=== PATIENT | female | born 1995 | race Caucasian/White ===

== ENCOUNTER 2016-09-05 22:42 | Emergency (ER) | payer BC ==
[~2016-09-05] VITALS: Ht 43.2 cm; Wt 104.5 kg
[~2016-09-05 22:42] MED LIST: COLACE 100100 MG/CAP PO; FERROUS SU325 MG/TAB PO; IRON325 MG; MOTRIN 800800 MG/TAB PO; NATURAL POTASS595 MG; PERCOCET 325 MG1 TA2; PRENATAL MVI PO; TYLENOL 500MG500 MG PO; XARELTO STARTER20 MG PO; XARELTO20 MG PO
[2016-09-05] MEDS ORDERED: BIRTH CONTROL PILL (22:51)
[2016-09-05 23:38] LABS: BASO % 0.3 % (0.0-2.0); EOS # 0.3 (0.0-0.7); EOS % 3.5 % (0-4.0); GRAN # 4.8 (1.4-6.5); GRAN % 52.2 % (42.2-75.2); HEMATOCRIT 37.6 % (37.0-47.0); HEMOGLOBIN 12.6 g/dl (12.5-16.0); LYMPH # 3.3 (1.2-3.4); LYMPH % 35.8 % (20.0-51.0); MEAN CELL VOLUME 89 fl (80.0-100.0); MEAN CORPUSCULAR HEMOGLOBIN 30 pg (27.0-31.0); MEAN CORPUSCULAR HGB CONC 34 g/dl (33.0-37.0); MEAN PLATELET VOLUME 10.1 fl (7.4-10.4); MONO # 0.7 (0.1-0.6); PLATELET COUNT 236 K/mm3 (130-400); RED BLOOD COUNT 4.23 M/mm3 (4.10-5.30); REDCELL DISTRIBUTION WIDTH-CV 12.6 % (11.5-14.5); WHITE BLOOD COUNT 9.2 K/mm3 (4.8-10.8)
[2016-09-05 23:43] LABS: PROTHROMBIN TIME 11.6 SECONDS (9.7-12.8)
[2016-09-05 23:46] LABS: PARTIAL THROMBOPLASTIN TIME 29.5 SECONDS (26.0-37.0)
[2016-09-05 23:47] LABS: ADJUSTED CALCIUM 9.3 mg/dL (8.4-10.2); ALANINE AMINOTRANSFERASE 33 U/L (9-52); ALBUMIN 4.1 gm/dL (3.5-5.0); ALKALINE PHOSPHATASE 80 U/L (50-136); ANION GAP 11 mmol/L (7-16); BILIRUBIN,TOTAL 0.6 mg/dL (0.0-1.0); BLOOD UREA NITROGEN 13 mg/dL (7-17); CALCIUM 9.4 mg/dL (8.4-10.2); CARBON DIOXIDE 23 mmol/L (22-30); CHLORIDE 107 mmol/L (98-107); CREATININE, serum 0.79 mg/dL (0.52-1.25); GLUCOSE 108 mg/dL (74-106); LIPASE 103 U/L (23-300); POTASSIUM 3.4 mmol/L (3.4-5.0); SODIUM 141 mmol/L (137-145); TOTAL PROTEIN 7.6 gm/dL (6.4-8.2)
[2016-09-05 23:59] LABS: B-TYPE NATRIURETIC PEPTIDE 28 pg/mL (0-125); TROPONIN-I < 0.012 ng/mL (0.000-0.034)
[2016-09-06 01:47] VITALS: BP 94/64; PULSE 75; TEMP 98.2
== END 2016-09-06 01:50 | disposition home or self-care (01) ==
LOC: COL.ER 22:42
PROVIDERS: Emergency Medicine
DX: R07.89 Other chest pain (principal); Z86.718 Personal history of other venous thrombosis and embolism; Z86.711 Personal history of pulmonary embolism; R06.02 Shortness of breath; M79.662 Pain in left lower leg
CPT/HCPCS: Q9967